=== PATIENT | male | born 1930 | race Caucasian/White ===

== ENCOUNTER 2018-12-20 07:53 | Day surgery (SDC) | payer MEDICARE ==
[2018-12-13 11:53] VITALS: BMI 23.6
[~2018-12-20 07:53] MED LIST: CLINDAMYCIN 900 MG in DEXTROSE 5% IN WATER 50 ML IVPB ONE; HEPARIN SODIUM,PORCINE 5,000 UNIT/ML 1 ML VIAL SQ ONE; HYDROmorphone 0.5 MG/0.5 ML SYRINGE IVP PRN; LEVOFLOXACIN 500MG-D5W PMX 500 MG in DEXTROSE/WATER 1 100ML.BAG IVPB ONE; MIDAZOLAM 2 MG/2 ML VIAL IV PRN; ONDANSETRON 4 MG/2 ML VIAL IVP ONE
[2018-12-20] MEDS: LACTATED RINGERS 1,000 ML IV SCH (08:37)
[2018-12-20 08:38] VITALS: TEMP 97.6
[2018-12-20 08:47] LABS: HCT 42.8 % (39.0-53.0); HGB 14.1 gm/dL (13.0-17.5); MCH 29.6 pg (25.0-35.0); MCV 89.5 fL (80.0-100.0); Mean Platelet Volume 6.5; Platelet Count 308 k/uL (150-450); RBC 4.78 m/uL (4.30-5.90); RDW 14.2 % (11.5-15.5)
[2018-12-20 08:58] LABS: Calcium 9.8 mg/dL (8.4-10.2); Potassium 4.2 mmol/L (3.5-5.1)
[2018-12-20 09:01] LABS: Prothrombin Time 10.8 sec (9.0-12.0)
--- NOTE | 2018-12-20 09:02 | P.GSHP ---
History of Present Illness H&P Date: 12/20/18 Chief Complaint: Right inguinal hernia This 80-year-old male who's developed a right angle hernia. Patient rents today for laparoscopic robotic-assisted repair. Past Medical History Past Medical History: Atrial Fibrillation, GERD/Reflux, Hyperlipidemia Additional Past Medical History / Comment(s): constipation, hx scarlet fever as child, heart murmer History of Any Multi-Drug Resistant Organisms: None Reported Past Surgical History: Hernia Repair, Joint Replacement Additional Past Surgical History / Comment(s): rt hip replacement, left knee replacement, toni cataracts Past Anesthesia/Blood Transfusion Reactions: Motion Sickness Smoking Status: Never smoker - Past Family History Mother Family Medical History: No Reported History Medications and Allergies Home Medications Medication Instructions Recorded Confirmed Type Acetaminophen [Tylenol Extra 500 mg PO DIRECTED PRN 12/13/18 12/20/18 History Strength] Allergy Medication 1 tab PO DAILY 12/13/18 12/20/18 History Brimonidine Tartrate [Alphagan P 1 drops LEFT EYE BID 12/13/18 12/20/18 History 0.2% Ophth Soln] Diltiazem HCl [Cartia Xt] 120 mg PO DAILY 12/13/18 12/20/18 History Diltiazem HCl [Cartia Xt] 180 mg PO DAILY 12/13/18 12/20/18 History Ferrous Sulfate [Feosol] 325 mg PO DAILY 12/13/18 12/20/18 History Fish Oil/Dha/Epa [Fish Oil 1,200 1 each PO BID 12/13/18 12/20/18 History mg Fish Oil] Latanoprost [Xalatan 0.005%] 1 drop LEFT EYE HS 12/13/18 12/20/18 History Niacin 500 mg PO DAILY 12/13/18 12/20/18 History Tums(Dose Unknown) 1 tab PO DIRECTED PRN 12/13/18 12/20/18 History Warfarin [Coumadin] 7.5 mg PO SUMOWETHSA 12/13/18 12/20/18 History Warfarin [Coumadin] 10 mg PO TUFR 12/13/18 12/20/18 History Allergies Allergy/AdvReac Type Severity Reaction Status Date / Time Penicillins Allergy Unknown Verified 12/20/18 08:25 Surgical - Exam Vital Signs Temp Pulse Resp BP Pulse Ox 97.6 F 66 16 147/79 95 12/20/18 08:19 12/20/18 08:19 12/20/18 08:19 12/20/18 08:19 12/20/18 08:19 - General well developed, well nourished, no distress - Eyes PERRL - ENT normal pinna - Neck no masses - Respiratory normal expansion - Cardiovascular Rhythm: regular - Abdomen Abdomen: soft, non tender Results - Labs 12/20/18 08:30 12/20/18 08:30 Abnormal Lab Results - Last 24 Hours (Table) 12/20/18 Range/Units 08:30 Glucose 101 H (74-99) mg/dL Diabetes panel 12/20/18 Range/Units 08:30 Sodium 138 (137-145) mmol/L Potassium 4.2 (3.5-5.1) mmol/L Chloride 101 (98-107) mmol/L Carbon Dioxide 30 (22-30) mmol/L BUN 18 (9-20) mg/dL Creatinine 1.04 (0.66-1.25) mg/dL Glucose 101 H (74-99) mg/dL Calcium 9.8 (8.4-10.2) mg/dL Calcium panel 12/20/18 Range/Units 08:30 Calcium 9.8 (8.4-10.2) mg/dL Pituitary panel 12/20/18 Range/Units 08:30 Sodium 138 (137-145) mmol/L Potassium 4.2 (3.5-5.1) mmol/L Chloride 101 (98-107) mmol/L Carbon Dioxide 30 (22-30) mmol/L BUN 18 (9-20) mg/dL Creatinine 1.04 (0.66-1.25) mg/dL Glucose 101 H (74-99) mg/dL Calcium 9.8 (8.4-10.2) mg/dL Adrenal panel 12/20/18 Range/Units 08:30 Sodium 138 (137-145) mmol/L Potassium 4.2 (3.5-5.1) mmol/L Chloride 101 (98-107) mmol/L Carbon Dioxide 30 (22-30) mmol/L BUN 18 (9-20) mg/dL Creatinine 1.04 (0.66-1.25) mg/dL Glucose 101 H (74-99) mg/dL Calcium 9.8 (8.4-10.2) mg/dL Assessment and Plan Assessment: Right inguinal hernia. We'll perform laparoscopic robotic-assisted repair.
[2018-12-20] MEDS ORDERED: ePHEDrine SULFATE/0.9% NACL/PF 50 MG/5 ML SYRINGE IV ONE (09:09)
[2018-12-20] MEDS ORDERED: NEOSTIGMINE 1 MG/ML 10 ML VIAL ONE (09:09)
[2018-12-20] MEDS ORDERED: SUCCINYLCHOLINE CHLORIDE 100 MG/5 ML SYR IV ONE (09:09)
[2018-12-20] MEDS ORDERED: GLYCOPYRROLATE 0.2 MG/ML 2 ML VIAL ONE (09:09)
[2018-12-20] MEDS ORDERED: PROPOFOL 10 MG/ML 20 ML VIAL IV ONE (09:09)
[2018-12-20] MEDS ORDERED: ROCURONIUM BROMIDE 10 MG/ML 10 ML VIAL IV ONE (09:09)
[2018-12-20] MEDS ORDERED: KETOROLAC 30 MG/ML 1 ML VIAL ONE (09:09)
[2018-12-20] MEDS ORDERED: LIDOCAINE 1% INJ 10MG/ML (20 ML MDV) ONE (09:09)
[2018-12-20] MEDS ORDERED: fentaNYL (PF) 50 MCG/ML 2 ML AMP ONE (09:09)
--- NOTE | 2018-12-20 10:25 | P.OP ---
Date of Procedure: 12/20/18 Preoperative Diagnosis: Right inguinal hernia Postoperative Diagnosis: Right inguinal hernia Procedure(s) Performed: Lap her scopic robotic-assisted repair of right inguinal hernia Anesthesia: ALETA Surgeon: Don Mg Estimated Blood Loss (ml): 5 Pathology: none sent Condition: stable Disposition: PACU Description of Procedure: The patient was placed on the operating table in the supine position. The patient received general anesthesia. The patient's abdomen was prepped and draped in usual sterile fashion. The skin was anesthetized 1% local Xylocaine at the incision sites. Using an 11 blade a skin incision was made at the umbilicus. The fascia was grasped with a Courtney and then the peritoneal cavity was entered with the Veress needle. Position of the Veress needle was confirmed with a positive drop test. After adequate insufflation a 5 mm trocar was placed into the peritoneal cavity. The Laparoscope was placed the peritoneal cavity. And a robotic 8 mm trocar was placed in the right lateral position and then another 8 mm robotic trochars placed in the left lateral position. The original 5 mm trocar was exchanged for a 12 mm trocar. The patient was placed in reverse Trendelenburg and then the patient was docked to the robot. Next the peritoneum over top of the hernia was incised and then using blunt and sharp dissection and electrocautery the hernia sac was dissected free from the floor of the inguinal canal. The hernia sac was completely reduced into the peritoneal cavity. And then using the Pro track repair laborer mesh the hernia was repaired. The peritoneum was then sutured with 2-0V lock suture. The patient was then undocked the robot. The needle was withdrawn from the peritoneal cavity. The umbilical trocar site was closed with 0 Ethibond suture. The skin was closed interrupted 3-0 Monocryl suture. Dermabond dressing was applied. Patient was sent to recovery in stable condition.
[2018-12-20 10:40] VITALS: RESP 16
[2018-12-20 11:29] VITALS: BP 109/65; PULSE 56
== END 2018-12-20 12:27 | disposition home or self-care (01) ==
LOC: OR 07:53 → EDBD 09:45 → OR 12:27
PROVIDERS: ATTEND Surgery
DX: K40.90 Unilateral inguinal hernia, without obstruction or gangrene, not specified as recurrent (principal); I48.91 Unspecified atrial fibrillation; K21.9 Gastro-esophageal reflux disease without esophagitis; E78.5 Hyperlipidemia, unspecified; Z79.899 Other long term (current) drug therapy; Z79.01 Long term (current) use of anticoagulants; Z88.0 Allergy status to penicillin
CPT/HCPCS: 49650; 80048; 85027; 85610; C1781; J1644; J2710; J2405; J1956; J2001; J3010; J1885; J0330; J2704